=== PATIENT | male | born 1975 | race Caucasian/White ===

== ENCOUNTER → 2016-09-19 | Outpatient (CLI) | payer MEDICARE, MEDICAID ==
[~2016-09-19] MED LIST: BACTRIM 400 MG-1 TAB PO; BUMEX1 MG PO; CELLCEPT500 MG PO; CLONIDINE0.1 MG PO; CLONIDINE0.2 MG PO; COREG25 MG PO; HYDROCODONE BIT1 T11 PO; HYDRODIURIL25 MG PO; INSULIN-HUMA100 U/ML; LIPITOR20 MG PO; LISINOPRIL20 MG PO; NORVASC5 MG PO; PANTOPRAZOLE40 MG PO; PRILOSEC20 MG PO; PROGRAF1 MG PO; SIMVASTATIN20 MG PO; VICODIN 500 MG-1 TAB PO; VITAMIN C1000 M2 PO; VITAMIN D400 I1 PO
[2016-09-19 09:37] LABS: BASO % 0.8 % (0.0-1.0); EOS # 0.1 10*3/uL (0.0-0.4); HEMATOCRIT 43.6 % (42.0-52.0); HEMOGLOBIN 14.9 g/dl (14.0-18.0); LYMPH # 0.8 10*3/uL (1.3-4.4); MEAN CELL VOLUME 88.8 fl (80.0-94.0); MEAN CORPUSCULAR HGB 30.3 pg (27.0-31.0); MEAN CORPUSCULAR HGB CONC 34.2 g/dl (33.0-37.0); MEAN PLATELET VOLUME 10.4 fl (9.6-12.3); MONO # 0.3 10*3/uL (0.1-1.0); MONO % 9.2 % (3.0-9.0); NEUT # 2.4 10*3/uL (2.3-7.9); NEUT % 66.7 % (47.0-73.0); PLATELET COUNT AUTOMATED 230 10*3/uL (130-400); RED BLOOD COUNT 4.91 10*6/uL (4.50-5.90); RED CELL DISTRI WIDTH 12.7 % (0-14.5); WHITE BLOOD COUNT 3.6 10*3/uL (4.8-10.8)
[2016-09-19 10:05] LABS: BUN 19 mg/dl (7-24); CARBON DIOXIDE 26 mmol/L (21-32); CHLORIDE 104 mmol/L (98-107); EST GLOM FILT AFRICAN AMERICAN > 60 ml/min; GLUCOSE 302 mg/dL (65-99); MAGNESIUM 1.9 mg/dL (1.5-2.1); PHOSPHOROUS 2.5 mg/dL (2.5-4.9); POTASSIUM 5.1 mmol/L (3.5-5.1); SODIUM 139 mmol/L (136-145); URIC ACID 4.7 mg/dL (3.5-7.2)
== END | disposition home or self-care (01) ==
LOC: LAB 09:24
PROVIDERS: Internal Medicine Nephrology
DX: Z94.0 Kidney transplant status (principal)

== ENCOUNTER → 2016-10-10 | Outpatient (CLI) | payer MEDICARE, MEDICAID ==
[2016-10-10 10:07] LABS: ALBUMIN 3.8 gm/dl (3.1-4.5); ALKALINE PHOSPHATASE 88 U/L (45-117); BILIRUBIN, TOTAL 0.5 mg/dl (0.2-1.0); BUN 17 mg/dl (7-24); CARBON DIOXIDE 28 mmol/L (21-32); CHLORIDE 105 mmol/L (98-107); CHOLESTEROL 203 mg/dL (<200); EST GLOM FILT AFRICAN AMERICAN > 60 ml/min; GLUCOSE 208 mg/dL (65-99); HDL CHOLESTEROL 56 mg/dl (40-60); LDL CHOLESTEROL 121 mg/dL (9-159); POTASSIUM 4.3 mmol/L (3.5-5.1); SGOT/AST 12 IU/L (3-35); SGPT/ALT 23 U/L (12-78); SODIUM 140 mmol/L (136-145); TRIGLYCERIDES 128 mg/dl (<150); VLDL CHOLESTEROL 26 mg/dL (6-40)
[2016-10-10 10:46] LABS: HEMOGLOBIN A1c 8.2 % (4.8-5.6)
== END | disposition home or self-care (01) ==
LOC: LAB 09:11
PROVIDERS: Physician Assistant Medical
DX: E10.65 Type 1 diabetes mellitus with hyperglycemia (principal); E78.2 Mixed hyperlipidemia; E03.9 Hypothyroidism, unspecified

== ENCOUNTER → 2017-01-31 | Outpatient (CLI) | payer MEDICARE, MEDICAID ==
[2017-01-31 11:18] LABS: ALBUMIN 3.7 gm/dl (3.1-4.5); ALKALINE PHOSPHATASE 83 U/L (45-117); BILIRUBIN, TOTAL 0.9 mg/dl (0.2-1.0); BUN 19 mg/dl (7-24); CARBON DIOXIDE 25 mmol/L (21-32); CHLORIDE 106 mmol/L (98-107); CHOLESTEROL 190 mg/dL (<200); EST GLOM FILT AFRICAN AMERICAN > 60 ml/min; GLUCOSE 117 mg/dL (65-99); HDL CHOLESTEROL 66 mg/dl (40-60); LDL CHOLESTEROL 104 mg/dL (9-159); POTASSIUM 4.1 mmol/L (3.5-5.1); SGOT/AST 13 IU/L (3-35); SGPT/ALT 21 U/L (12-78); SODIUM 136 mmol/L (136-145); TOTAL PROTEIN 7.1 gm/dL (6.4-8.2); TRIGLYCERIDES 102 mg/dl (<150); VLDL CHOLESTEROL 20 mg/dL (6-40)
[2017-01-31 11:24] LABS: HEMOGLOBIN A1c 7.7 % (4.8-5.6)
== END | disposition home or self-care (01) ==
LOC: LAB 10:17
PROVIDERS: Physician Assistant Medical
DX: E10.65 Type 1 diabetes mellitus with hyperglycemia (principal); E03.9 Hypothyroidism, unspecified; E78.2 Mixed hyperlipidemia

== ENCOUNTER → 2017-06-15 | Outpatient (CLI) | payer MEDICARE, MEDICAID ==
[2017-06-15 10:26] LABS: BASO % 0.4 % (0.0-1.0); EOS # 0.1 10*3/uL (0.0-0.4); EOS % 2.6 % (1.0-4.0); HEMATOCRIT 46.7 % (42.0-52.0); HEMOGLOBIN 15.9 g/dl (14.0-18.0); LYMPH # 0.8 10*3/uL (1.3-4.4); LYMPH % 17.1 % (27.0-41.0); MEAN CELL VOLUME 87.8 fl (80.0-94.0); MEAN CORPUSCULAR HGB 29.9 pg (27.0-31.0); MEAN PLATELET VOLUME 10.5 fl (9.6-12.3); MONO # 0.4 10*3/uL (0.1-1.0); MONO % 8.3 % (3.0-9.0); NEUT # 3.3 10*3/uL (2.3-7.9); NEUT % 71.4 % (47.0-73.0); PLATELET COUNT AUTOMATED 196 10*3/uL (130-400); RED BLOOD COUNT 5.32 10*6/uL (4.50-5.90); RED CELL DISTRI WIDTH 12.6 % (0-14.5); WHITE BLOOD COUNT 4.6 10*3/uL (4.8-10.8)
[2017-06-15 10:55] LABS: PHOSPHOROUS 2.8 mg/dL (2.5-4.9); URIC ACID 4.7 mg/dL (3.5-7.2)
[2017-06-15 10:58] LABS: ALBUMIN 3.7 gm/dl (3.1-4.5); ALKALINE PHOSPHATASE 97 U/L (45-117); BUN 18 mg/dl (7-24); CHLORIDE 105 mmol/L (98-107); CHOLESTEROL 191 mg/dL (<200); CREATININE 1.34 mg/dL (0.70-1.30); HDL CHOLESTEROL 52 mg/dl (40-60); LDL CHOLESTEROL 114 mg/dL (9-159); POTASSIUM 4.5 mmol/L (3.5-5.1); SGOT/AST 11 IU/L (3-35); SGPT/ALT 21 U/L (12-78); SODIUM 139 mmol/L (136-145); TOTAL PROTEIN 7.4 gm/dL (6.4-8.2); TRIGLYCERIDES 127 mg/dl (<150); VLDL CHOLESTEROL 25 mg/dL (6-40)
== END | disposition home or self-care (01) ==
LOC: LAB 09:50
PROVIDERS: Internal Medicine Nephrology; Physician Assistant Medical
DX: E10.65 Type 1 diabetes mellitus with hyperglycemia (principal); E78.00 Pure hypercholesterolemia, unspecified; I10 Essential (primary) hypertension; Z94.0 Kidney transplant status

== ENCOUNTER 2017-07-11 20:05 | Emergency (ER) | payer MEDICARE, MEDICAID ==
[~2017-07-11] VITALS: Ht 185.4 cm; Wt 108.9 kg
--- NOTE | ~2017-07-11 | EKG ---
[place], [place] ELECTROCARDIOGRAM REPORT NAME: JOSE DAVID ALMONTE UNIT #: [id number] ROOM: DOCTOR: MYKEL SOLO MD BIRTHDATE: [birth year] DOS: 07/11/2017 Time: 2102 hours. Normal sinus rhythm at 92 beats per minute. The tracing is normal. No previous tracing is available for comparison. MYKEL SOLO MD CM:EKGRPT:ELECTROCARDIOGRAM REPORT [id number] MYKEL SOLO MD
[2017-07-11 21:05] LABS: BASO % 0.7 % (0.0-1.0); EOS # 0.1 10*3/uL (0.0-0.4); EOS % 2.2 % (1.0-4.0); HEMATOCRIT 47.3 % (42.0-52.0); HEMOGLOBIN 16.2 g/dl (14.0-18.0); LYMPH # 1.3 10*3/uL (1.3-4.4); LYMPH % 23.2 % (27.0-41.0); MEAN CELL VOLUME 87.4 fl (80.0-94.0); MEAN CORPUSCULAR HGB 29.9 pg (27.0-31.0); MEAN CORPUSCULAR HGB CONC 34.2 g/dl (33.0-37.0); MEAN PLATELET VOLUME 10.2 fl (9.6-12.3); MONO # 0.4 10*3/uL (0.1-1.0); MONO % 7.1 % (3.0-9.0); NEUT # 3.9 10*3/uL (2.3-7.9); NEUT % 66.6 % (47.0-73.0); PLATELET COUNT AUTOMATED 210 10*3/uL (130-400); RED BLOOD COUNT 5.41 10*6/uL (4.50-5.90); WHITE BLOOD COUNT 5.8 10*3/uL (4.8-10.8)
[2017-07-11 21:21] LABS: CREATININE 1.61 mg/dL (0.70-1.30); POTASSIUM 4.6 mmol/L (3.5-5.1); TOTAL PROTEIN 7.4 gm/dL (6.4-8.2)
== END 2017-07-11 22:42 | disposition home or self-care (01) ==
LOC: ED 20:05
PROVIDERS: Physician Assistant
DX: R55 Syncope and collapse (principal); R42 Dizziness and giddiness; I12.9 Hypertensive chronic kidney disease with stage 1 through stage 4 chronic kidney disease, or unspecified chronic kidney disease; E10.22 Type 1 diabetes mellitus with diabetic chronic kidney disease; E10.319 Type 1 diabetes mellitus with unspecified diabetic retinopathy without macular edema; N18.9 Chronic kidney disease, unspecified; E78.00 Pure hypercholesterolemia, unspecified; Z94.0 Kidney transplant status

== ENCOUNTER → 2017-09-18 | Outpatient (CLI) | payer MEDICARE, MEDICAID ==
[2017-09-18 10:45] LABS: BASO % 0.5 % (0.0-1.0); EOS # 0.2 10*3/uL (0.0-0.4); EOS % 5.1 % (1.0-4.0); HEMOGLOBIN 15.9 g/dl (14.0-18.0); LYMPH # 0.8 10*3/uL (1.3-4.4); LYMPH % 18.8 % (27.0-41.0); MEAN CORPUSCULAR HGB 30.1 pg (27.0-31.0); MEAN CORPUSCULAR HGB CONC 34.6 g/dl (33.0-37.0); MEAN PLATELET VOLUME 10.3 fl (9.6-12.3); MONO # 0.3 10*3/uL (0.1-1.0); MONO % 7.7 % (3.0-9.0); NEUT # 2.9 10*3/uL (2.3-7.9); NEUT % 67.7 % (47.0-73.0); PLATELET COUNT AUTOMATED 186 10*3/uL (130-400); RED BLOOD COUNT 5.29 10*6/uL (4.50-5.90); RED CELL DISTRI WIDTH 12.8 % (0-14.5); WHITE BLOOD COUNT 4.3 10*3/uL (4.8-10.8)
[2017-09-18 10:59] LABS: PHOSPHOROUS 2.6 mg/dL (2.5-4.9); URIC ACID 4.9 mg/dL (3.5-7.2)
[2017-09-18 11:02] LABS: ALBUMIN 3.9 gm/dl (3.1-4.5); BUN 22 mg/dl (7-24); CHLORIDE 104 mmol/L (98-107); CHOLESTEROL 198 mg/dL (<200); CREATININE 1.35 mg/dL (0.70-1.30); HDL CHOLESTEROL 52 mg/dl (40-60); LDL CHOLESTEROL 125 mg/dL (9-159); SGOT/AST 17 IU/L (3-35); SGPT/ALT 25 U/L (12-78); SODIUM 138 mmol/L (136-145); TOTAL PROTEIN 7.4 gm/dL (6.4-8.2); TRIGLYCERIDES 104 mg/dl (<150); VLDL CHOLESTEROL 21 mg/dL (6-40)
[2017-09-18 11:03] LABS: ALKALINE PHOSPHATASE 95 U/L (45-117)
== END | disposition home or self-care (01) ==
LOC: LAB 10:25
PROVIDERS: Internal Medicine Nephrology; Physician Assistant Medical
DX: E10.65 Type 1 diabetes mellitus with hyperglycemia (principal); E78.00 Pure hypercholesterolemia, unspecified; I10 Essential (primary) hypertension; Z94.0 Kidney transplant status

== ENCOUNTER → 2018-01-02 | Outpatient (CLI) | payer MEDICARE, MEDICAID ==
[2018-01-02 10:11] LABS: BASO % 0.6 % (0.0-1.0); EOS # 0.2 10*3/uL (0.0-0.4); EOS % 4.4 % (1.0-4.0); HEMATOCRIT 45.2 % (42.0-52.0); HEMOGLOBIN 15.5 g/dl (14.0-18.0); LYMPH # 0.9 10*3/uL (1.3-4.4); LYMPH % 24.9 % (27.0-41.0); MEAN CELL VOLUME 88.6 fl (80.0-94.0); MEAN CORPUSCULAR HGB 30.4 pg (27.0-31.0); MEAN CORPUSCULAR HGB CONC 34.3 g/dl (33.0-37.0); MEAN PLATELET VOLUME 10.3 fl (9.6-12.3); MONO # 0.3 10*3/uL (0.1-1.0); MONO % 9.4 % (3.0-9.0); NEUT # 2.1 10*3/uL (2.3-7.9); NEUT % 60.4 % (47.0-73.0); PLATELET COUNT AUTOMATED 187 10*3/uL (130-400); RED CELL DISTRI WIDTH 12.6 % (0-14.5); WHITE BLOOD COUNT 3.4 10*3/uL (4.8-10.8)
[2018-01-02 10:32] LABS: PHOSPHOROUS 2.6 mg/dL (2.5-4.9)
[2018-01-02 10:35] LABS: ALBUMIN 3.7 gm/dl (3.1-4.5); ALKALINE PHOSPHATASE 81 U/L (45-117); BUN 18 mg/dl (7-24); CHLORIDE 107 mmol/L (98-107); CHOLESTEROL 167 mg/dL (<200); CREATININE 1.42 mg/dL (0.70-1.30); HDL CHOLESTEROL 50 mg/dl (40-60); LDL CHOLESTEROL 96 mg/dL (9-159); POTASSIUM 4.8 mmol/L (3.5-5.1); SGOT/AST 10 IU/L (3-35); SGPT/ALT 21 U/L (12-78); SODIUM 139 mmol/L (136-145); TOTAL PROTEIN 7.1 gm/dL (6.4-8.2); TRIGLYCERIDES 104 mg/dl (<150); VLDL CHOLESTEROL 21 mg/dL (6-40)
== END | disposition home or self-care (01) ==
LOC: LAB 09:44
PROVIDERS: Internal Medicine Nephrology; Physician Assistant Medical
DX: E78.00 Pure hypercholesterolemia, unspecified (principal); E03.9 Hypothyroidism, unspecified; I10 Essential (primary) hypertension; E10.9 Type 1 diabetes mellitus without complications; Z94.0 Kidney transplant status

== ENCOUNTER 2018-02-18 10:33 | Emergency (ER) | payer MEDICARE, MEDICAID ==
[~2018-02-18] VITALS: Ht 185.4 cm; Wt 108.9 kg
[2018-02-18] MEDS ORDERED: AMOXICILLIN500 M2 PO (11:21)
== END 2018-02-18 11:48 | disposition home or self-care (01) ==
LOC: ED 10:33
DX: H65.01 Acute serous otitis media, right ear (principal); Z79.899 Other long term (current) drug therapy

== ENCOUNTER → 2018-05-07 | Outpatient (CLI) | payer MEDICARE, MEDICAID ==
[~2018-05-07] MED LIST changes: +AMOXICILLIN500 M2 PO
[2018-05-07 10:33] LABS: URIC ACID 5.7 mg/dL (3.5-7.2)
[2018-05-07 10:35] LABS: ALBUMIN 3.8 gm/dl (3.1-4.5); BUN 21 mg/dl (7-24); CHLORIDE 106 mmol/L (98-107); CHOLESTEROL 148 mg/dL (<200); CREATININE 1.21 mg/dL (0.70-1.30); POTASSIUM 4.1 mmol/L (3.5-5.1); SGOT/AST 18 IU/L (3-35); SGPT/ALT 33 U/L (12-78); SODIUM 140 mmol/L (136-145)
[2018-05-07 10:38] LABS: ALKALINE PHOSPHATASE 90 U/L (45-117); HDL CHOLESTEROL 53 mg/dl (40-60); LDL CHOLESTEROL 77 mg/dL (9-159); TOTAL PROTEIN 7.2 gm/dL (6.4-8.2); TRIGLYCERIDES 92 mg/dl (<150); VLDL CHOLESTEROL 18 mg/dL (6-40)
[2018-05-07 10:44] LABS: BASO % 0.6 % (0.0-1.0); EOS # 0.1 10*3/uL (0.0-0.4); HEMATOCRIT 45.1 % (42.0-52.0); HEMOGLOBIN 15.3 g/dl (14.0-18.0); LYMPH # 1.2 10*3/uL (1.3-4.4); LYMPH % 34.1 % (27.0-41.0); MEAN CELL VOLUME 89.5 fl (80.0-94.0); MEAN CORPUSCULAR HGB 30.4 pg (27.0-31.0); MEAN CORPUSCULAR HGB CONC 33.9 g/dl (33.0-37.0); MEAN PLATELET VOLUME 10.4 fl (9.6-12.3); MONO # 0.4 10*3/uL (0.1-1.0); MONO % 12.3 % (3.0-9.0); NEUT # 1.7 10*3/uL (2.3-7.9); NEUT % 48.7 % (47.0-73.0); PLATELET COUNT AUTOMATED 188 10*3/uL (130-400); RED BLOOD COUNT 5.04 10*6/uL (4.50-5.90); RED CELL DISTRI WIDTH 13.1 % (0-14.5); WHITE BLOOD COUNT 3.5 10*3/uL (4.8-10.8)
== END | disposition home or self-care (01) ==
LOC: LAB 09:33
PROVIDERS: Nurse Practitioner; Physician Assistant Medical
DX: D89.9 Disorder involving the immune mechanism, unspecified (principal); E10.65 Type 1 diabetes mellitus with hyperglycemia; E83.40 Disorders of magnesium metabolism, unspecified; Z79.899 Other long term (current) drug therapy; Z94.0 Kidney transplant status

== ENCOUNTER 2018-08-01 10:13 | Emergency (ER) | payer MEDICARE, MEDICAID ==
[~2018-08-01] VITALS: Ht 182.8 cm; Wt 104.3 kg
[2018-08-01] MEDS ORDERED: TESSALON PERLE100 M1 PO (11:17)
[2018-08-01] MEDS ORDERED: SEPTDS PO (11:17)
[2018-08-01] MEDS ORDERED: PREDNISONE20 M1 PO (11:17)
== END 2018-08-01 11:35 | disposition home or self-care (01) ==
LOC: ED 10:13
DX: J32.9 Chronic sinusitis, unspecified (principal); Z79.899 Other long term (current) drug therapy

== ENCOUNTER → 2018-08-09 | Outpatient (CLI) | payer MEDICARE, MEDICAID ==
[~2018-08-09] MED LIST changes: +PREDNISONE20 M1 PO; +SEPTDS PO; +TESSALON PERLE100 M1 PO
[2018-08-09 10:08] LABS: BASO % 0.5 % (0.0-1.0); BUN 20 mg/dl (7-24); CHLORIDE 107 mmol/L (98-107); CREATININE 1.38 mg/dL (0.70-1.30); EOS # 0.1 10*3/uL (0.0-0.4); EOS % 3.1 % (1.0-4.0); HEMOGLOBIN 15.6 g/dl (14.0-18.0); LYMPH # 0.9 10*3/uL (1.3-4.4); LYMPH % 22.5 % (27.0-41.0); MEAN CORPUSCULAR HGB 30.2 pg (27.0-31.0); MEAN CORPUSCULAR HGB CONC 33.9 g/dl (33.0-37.0); MEAN PLATELET VOLUME 10.6 fl (9.6-12.3); MONO # 0.3 10*3/uL (0.1-1.0); MONO % 6.5 % (3.0-9.0); NEUT # 2.8 10*3/uL (2.3-7.9); NEUT % 66.9 % (47.0-73.0); PHOSPHOROUS 3.1 mg/dL (2.5-4.9); PLATELET COUNT AUTOMATED 226 10*3/uL (130-400); POTASSIUM 4.7 mmol/L (3.5-5.1); RED BLOOD COUNT 5.17 10*6/uL (4.50-5.90); RED CELL DISTRI WIDTH 12.9 % (0-14.5); SODIUM 139 mmol/L (136-145); WHITE BLOOD COUNT 4.1 10*3/uL (4.8-10.8)
[2018-08-09 10:09] LABS: URIC ACID 4.4 mg/dL (3.5-7.2)
== END | disposition home or self-care (01) ==
LOC: LAB 08:42
PROVIDERS: Internal Medicine Nephrology
DX: E55.9 Vitamin D deficiency, unspecified (principal); Z94.0 Kidney transplant status; Z79.899 Other long term (current) drug therapy

== ENCOUNTER → 2018-10-16 | Outpatient (CLI) | payer MEDICARE ==
[2018-10-16 09:16] LABS: BASO % 0.6 % (0.0-1.0); EOS # 0.1 10*3/uL (0.0-0.4); EOS % 3.3 % (1.0-4.0); HEMATOCRIT 45.8 % (42.0-52.0); HEMOGLOBIN 15.8 g/dl (14.0-18.0); LYMPH # 1.1 10*3/uL (1.3-4.4); LYMPH % 30.1 % (27.0-41.0); MEAN CELL VOLUME 89.6 fl (80.0-94.0); MEAN CORPUSCULAR HGB 30.9 pg (27.0-31.0); MEAN CORPUSCULAR HGB CONC 34.5 g/dl (33.0-37.0); MONO # 0.4 10*3/uL (0.1-1.0); MONO % 10.6 % (3.0-9.0); NEUT % 55.1 % (47.0-73.0); PLATELET COUNT AUTOMATED 196 10*3/uL (130-400); RED BLOOD COUNT 5.11 10*6/uL (4.50-5.90); WHITE BLOOD COUNT 3.6 10*3/uL (4.8-10.8)
[2018-10-16 09:39] LABS: BUN 22 mg/dl (7-24); CHLORIDE 110 mmol/L (98-107); CREATININE 1.24 mg/dL (0.70-1.30); PHOSPHOROUS 2.4 mg/dL (2.5-4.9); POTASSIUM 4.5 mmol/L (3.5-5.1); SODIUM 139 mmol/L (136-145); URIC ACID 5.7 mg/dL (3.5-7.2)
[2018-10-16 10:53] LABS: PTH INTACT 102.4 pg/mL (18.5-88.0); VITAMIN D, 25-HYDROXY 28.5 ng/mL (30-100)
== END | disposition home or self-care (01) ==
LOC: LAB 08:34
PROVIDERS: Internal Medicine Nephrology
DX: N25.81 Secondary hyperparathyroidism of renal origin (principal); I12.9 Hypertensive chronic kidney disease with stage 1 through stage 4 chronic kidney disease, or unspecified chronic kidney disease; E10.22 Type 1 diabetes mellitus with diabetic chronic kidney disease; N18.9 Chronic kidney disease, unspecified; E55.9 Vitamin D deficiency, unspecified; Z94.0 Kidney transplant status; Z79.899 Other long term (current) drug therapy

== ENCOUNTER → 2019-04-11 | Outpatient (CLI) | payer MEDICARE ==
[~2019-04-11] MED LIST changes: +OMEPRAZOLE40 MG PO; +PROGRAF0.5 MG PO; -PROGRAF1 MG PO; +TRULICITY0.75 MG/0. SC
[2019-04-11 09:11] LABS: BASO % 0.6 % (0.0-1.0); EOS # 0.2 10*3/uL (0.0-0.4); EOS % 3.6 % (1.0-4.0); HEMATOCRIT 44.5 % (42.0-52.0); HEMOGLOBIN 15.2 g/dl (14.0-18.0); LYMPH % 19.8 % (27.0-41.0); MEAN CELL VOLUME 89.7 fl (80.0-94.0); MEAN CORPUSCULAR HGB 30.6 pg (27.0-31.0); MEAN CORPUSCULAR HGB CONC 34.2 g/dl (33.0-37.0); MEAN PLATELET VOLUME 10.5 fl (9.6-12.3); MONO # 0.4 10*3/uL (0.1-1.0); MONO % 8.4 % (3.0-9.0); NEUT # 3.4 10*3/uL (2.3-7.9); NEUT % 67.4 % (47.0-73.0); PLATELET COUNT AUTOMATED 185 10*3/uL (130-400); RED BLOOD COUNT 4.96 10*6/uL (4.50-5.90); RED CELL DISTRI WIDTH 12.6 % (0-14.5)
[2019-04-11 09:28] LABS: PHOSPHOROUS 3.5 mg/dL (2.5-4.9)
[2019-04-11 09:31] LABS: ALBUMIN 3.6 gm/dl (3.1-4.5); ALKALINE PHOSPHATASE 87 U/L (45-117); BUN 28 mg/dl (7-24); CHLORIDE 106 mmol/L (98-107); CHOLESTEROL 158 mg/dL (<200); CREATININE 1.32 mg/dL (0.70-1.30); SGOT/AST 15 IU/L (3-35); SGPT/ALT 26 U/L (12-78); SODIUM 136 mmol/L (136-145); TOTAL PROTEIN 7.2 gm/dL (6.4-8.2); TRIGLYCERIDES 134 mg/dl (<150); VLDL CHOLESTEROL 27 mg/dL (6-40)
[2019-04-11 09:32] LABS: HDL CHOLESTEROL 43 mg/dl (40-60); LDL CHOLESTEROL 88 mg/dL (9-159)
[2019-04-12 09:08] LABS: CREATININE,URINE 59.3 mg/dL (Not Estab.); MICRO ALBUMIN/CRE RATIO <5.1 (0.0-30.0)
== END | disposition home or self-care (01) ==
LOC: LAB 08:37
PROVIDERS: Internal Medicine Endocrinology, Diabetes & Metabolism; Internal Medicine Nephrology
DX: E10.29 Type 1 diabetes mellitus with other diabetic kidney complication (principal); E55.9 Vitamin D deficiency, unspecified; Z94.0 Kidney transplant status

== ENCOUNTER 2019-05-07 20:56 | Inpatient (IN) | payer MEDICARE ==
[~2019-05-07] VITALS: Ht 185.4 cm; Wt 119.9 kg
[~2019-05-07 20:56] MED LIST changes: -OMEPRAZOLE40 MG PO; -TRULICITY0.75 MG/0. SC
[2019-05-07 20:59] VITALS: BP 119/74
[2019-05-07 21:52] LABS: BASO % 0.3 % (0.0-1.0); EOS # 0.1 10*3/uL (0.0-0.4); HEMATOCRIT 43.2 % (42.0-52.0); LYMPH # 0.4 10*3/uL (1.3-4.4); LYMPH % 10.8 % (27.0-41.0); MEAN CELL VOLUME 88.7 fl (80.0-94.0); MEAN CORPUSCULAR HGB 30.8 pg (27.0-31.0); MEAN CORPUSCULAR HGB CONC 34.7 g/dl (33.0-37.0); MEAN PLATELET VOLUME 10.4 fl (9.6-12.3); MONO # 0.5 10*3/uL (0.1-1.0); MONO % 11.5 % (3.0-9.0); NEUT % 75.1 % (47.0-73.0); PLATELET COUNT AUTOMATED 169 10*3/uL (130-400); RED BLOOD COUNT 4.87 10*6/uL (4.50-5.90); RED CELL DISTRI WIDTH 12.3 % (0-14.5)
[2019-05-07 21:58] VITALS: BP 112/70
[2019-05-07 22:03] LABS: ACT PARTIAL THROMBO TIME 25.4 SECONDS (20.0-32.1)
[2019-05-07 22:08] LABS: ALBUMIN 3.5 gm/dl (3.1-4.5); ALKALINE PHOSPHATASE 87 U/L (45-117); BUN 17 mg/dl (7-24); CHLORIDE 109 mmol/L (98-107); CREATININE 1.42 mg/dL (0.70-1.30); LIPASE 50 U/L (73-393); POTASSIUM 4.2 mmol/L (3.5-5.1); SGOT/AST 18 IU/L (3-35); SGPT/ALT 22 U/L (12-78); SODIUM 141 mmol/L (136-145); TOTAL PROTEIN 6.8 gm/dL (6.4-8.2)
[2019-05-07 22:12] LABS: TROPONIN I < 0.015 ng/ml (<0.045)
[2019-05-07 22:30] VITALS: BP 102/65
[2019-05-07 23:00] VITALS: BP 99/67
--- NOTE | 2019-05-07 23:19 | NUR ---
[age] PT STATES HE IS PAIN FREE. NOT SURE IF HE WANTS TO STAY THE NIGHT DR HERNANDEZ TO TALK WITH THE PATIENT. ANDREI MATTHEW RN
[2019-05-08] VITALS: BP 111/73
[2019-05-08] MEDS ORDERED: OMEPRAZOLE40 MG PO (00:07)
[2019-05-08] MEDS ORDERED: TRULICITY0.75 MG/0. SC (00:09)
--- NOTE | 2019-05-08 02:26 | NUR ---
A 43, admitted to 4E, under the services of BECKY Garrison DO with a diagnosis of CHEST PAIN. Chief complaint is SHARP PAIN TO RUQ/CHEST PAIN. Patient arrived via stretcher from ER. Monitor applied. Initial assessment completed. Vital signs taken and recorded. BECKY GARRISON DO notified of admission to the unit. Orders received. See assessment for past medical history, medications and allergies. Patient and/or family oriented to unit. Clothing/patient valuable form completed. SHAYAN SUTHERLAND
[2019-05-08 03:48] LABS: BASO % 0.3 % (0.0-1.0); EOS # 0.1 10*3/uL (0.0-0.4); EOS % 3.5 % (1.0-4.0); HEMATOCRIT 41.7 % (42.0-52.0); HEMOGLOBIN 14.4 g/dl (14.0-18.0); LYMPH # 0.5 10*3/uL (1.3-4.4); LYMPH % 15.4 % (27.0-41.0); MEAN CELL VOLUME 89.3 fl (80.0-94.0); MEAN CORPUSCULAR HGB 30.8 pg (27.0-31.0); MEAN CORPUSCULAR HGB CONC 34.5 g/dl (33.0-37.0); MEAN PLATELET VOLUME 10.1 fl (9.6-12.3); MONO # 0.4 10*3/uL (0.1-1.0); MONO % 13.2 % (3.0-9.0); NEUT # 2.1 10*3/uL (2.3-7.9); NEUT % 67.6 % (47.0-73.0); PLATELET COUNT AUTOMATED 144 10*3/uL (130-400); RED BLOOD COUNT 4.67 10*6/uL (4.50-5.90); RED CELL DISTRI WIDTH 12.5 % (0-14.5); WHITE BLOOD COUNT 3.1 10*3/uL (4.8-10.8)
[2019-05-08 04:04] LABS: ALBUMIN 3.3 gm/dl (3.1-4.5); ALKALINE PHOSPHATASE 83 U/L (45-117); BUN 18 mg/dl (7-24); CHLORIDE 108 mmol/L (98-107); CREATININE 1.41 mg/dL (0.70-1.30); PHOSPHOROUS 3.2 mg/dL (2.5-4.9); POTASSIUM 4.5 mmol/L (3.5-5.1); SGOT/AST 12 IU/L (3-35); SGPT/ALT 20 U/L (12-78); SODIUM 140 mmol/L (136-145); TOTAL PROTEIN 6.4 gm/dL (6.4-8.2)
--- NOTE | 2019-05-08 04:11 | NUR ---
ANSWERING SERVICE NOTIFIED OF CONSULT
[2019-05-08 08:00] VITALS: BP 112/86; BP 124/76
--- NOTE | 2019-05-08 08:30 | NUR ---
PT ADVISED OF NPO STATUS FOR STRESS TEST THIS AM.
[2019-05-08 08:39] LABS: VITAMIN D, 25-HYDROXY 37.2 ng/mL (30-100)
--- NOTE | 2019-05-08 08:59 | NUR ---
SPOKE W/DR. SCHERER RE CXR RESULTS AND DR. NICHOLSON STATES PT CAN BE D/C TO HOME TODAY AND PT REQUESTING SCRIPT FOR [facility] ON D/C.
--- NOTE | 2019-05-08 09:00 | NUR ---
Rivet Machine Operator in to talk to patient. Patient states lives at home with family. There are few steps in the home. Physician: no pcp [facility]acy: [facility] Home health services: none Patient's level of ADLs: INDEPENDENT Patient has working utilities: all working DME: none Follow-up physician's appointment after d/c: will be made by hospitalist nurse director upon discharge Does patient want to access PORTAL?: no Discharge plan discussed with patient, he lives at home, is independent in adls and ambulation, states he will return home when medically stable and denies any home needs. DON LAM
--- NOTE | 2019-05-08 09:00 | NUR ---
PT GOING TO CARDIO FOR EXERCISE STRESS TEST.
--- NOTE | 2019-05-08 09:10 | NUR ---
INFORMED CONSENT OBTAINED FOR A STANDARD STRESS TEST WITH DR. YUN. RESTING EKG NSR WITH A HT RT OF 80 AND BP OF 118/78 IN A SUPINE POSITION, HT RT OF 106, AND BP OF 112/84 IN A STANDING POSITION. PT COMPLETED 7:15 OF A ELIEZER PROTOCOL WITH COMPLETION OF 1:15 INTO STAGE III AT 3.4 MPH AND 14% GRADE. REACHED A PEAK HT RT OF 150 WHICH IS 85% OF PREDICTED MAX WITH A PEAK BP OF 166/60. TEST TERMINATED DUE TO FATIGUE. HAD NO CHEST PAIN DURING EXERCISE. EKG NONDIAGNOSTIC. HAS AN AVERAGE EXERCISE TOLERANCE. LAST RECOVERY HT RT OF 118, WITH A BP OF 112/72. PT TAKEN BACK TO HIS ROOM IN STABLE CONDITION VIA WHEELCHAIR. REPORT GIVEN TO ANGELICA.
--- NOTE | 2019-05-08 09:42 | NUR ---
PT RETURNED TO FLOOR FROM STRESS TEST.
[2019-05-08 12:00] VITALS: BP 146/92
[2019-05-08 16:00] VITALS: BP 140/95
--- NOTE | 2019-05-08 16:21 | NUR ---
DR. CANTU NOTIFIED OF PT'S WISHES TO BE D/C TODAY. TO PASS ALONG TO APPROPRIATE TEAM MEMBERS.
--- NOTE | 2019-05-08 17:39 | NUR ---
Discharge instructions reviewed with patient/family. Patient receptive and verbalizes understanding. Follow-up care arranged. Written instructions given to patient/family. GONZALES TODD
== END 2019-05-08 19:12 | disposition home or self-care (01) | DRG 640 ==
LOC: ED 20:56 → 4E 23:06 → EDHOLD 23:06 → 4E 23:29
PROVIDERS: Emergency Medicine; Student in an Organized Health Care Education/Training Program; ADMIT Internal Medicine
PROC: 4A02XM4 Measurement of Cardiac Total Activity, External Approach (ICD-10-PCS; principal; 2019-05-08)
DX: E87.8 Other disorders of electrolyte and fluid balance, not elsewhere classified (principal); N17.0 Acute kidney failure with tubular necrosis; I24.9 Acute ischemic heart disease, unspecified; T86.12 Kidney transplant failure; M94.0 Chondrocostal junction syndrome [Tietze]; K21.9 Gastro-esophageal reflux disease without esophagitis; K29.70 Gastritis, unspecified, without bleeding; R00.0 Tachycardia, unspecified; E66.09 Other obesity due to excess calories; E10.22 Type 1 diabetes mellitus with diabetic chronic kidney disease; N18.3 Chronic kidney disease, stage 3 (moderate); D70.2 Other drug-induced agranulocytosis; E10.65 Type 1 diabetes mellitus with hyperglycemia; I48.0 Paroxysmal atrial fibrillation; Y83.0 Surgical operation with transplant of whole organ as the cause of abnormal reaction of the patient, or of later complication, without mention of misadventure at the time of the procedure; E78.5 Hyperlipidemia, unspecified; T50.995A Adverse effect of other drugs, medicaments and biological substances, initial encounter; Y92.89 Other specified places as the place of occurrence of the external cause; Z87.891 Personal history of nicotine dependence; Z82.49 Family history of ischemic heart disease and other diseases of the circulatory system; Z83.3 Family history of diabetes mellitus; Z79.899 Other long term (current) drug therapy; Z68.34 Body mass index [BMI] 34.0-34.9, adult

== ENCOUNTER → 2019-07-23 | Outpatient (CLI) | payer MEDICARE, OTHER ==
[~2019-07-23] MED LIST changes: +OMEPRAZOLE40 MG PO; +TRULICITY0.75 MG/0. SC
[2019-07-23 09:35] LABS: BASO % 0.2 % (0.0-1.0); EOS # 0.1 10*3/uL (0.0-0.4); HEMATOCRIT 44.4 % (42.0-52.0); HEMOGLOBIN 15.3 g/dl (14.0-18.0); LYMPH % 23.4 % (27.0-41.0); MEAN CELL VOLUME 87.6 fl (80.0-94.0); MEAN CORPUSCULAR HGB 30.2 pg (27.0-31.0); MEAN CORPUSCULAR HGB CONC 34.5 g/dl (33.0-37.0); MEAN PLATELET VOLUME 10.2 fl (9.6-12.3); MONO # 0.4 10*3/uL (0.1-1.0); NEUT # 2.8 10*3/uL (2.3-7.9); NEUT % 64.2 % (47.0-73.0); PLATELET COUNT AUTOMATED 200 10*3/uL (130-400); RED BLOOD COUNT 5.07 10*6/uL (4.50-5.90); RED CELL DISTRI WIDTH 12.9 % (0-14.5); WHITE BLOOD COUNT 4.3 10*3/uL (4.8-10.8)
[2019-07-23 10:09] LABS: PHOSPHOROUS 3.7 mg/dL (2.5-4.9); URIC ACID 4.9 mg/dL (3.5-7.2)
[2019-07-23 10:10] LABS: ALKALINE PHOSPHATASE 89 U/L (45-117); BUN 16 mg/dl (7-24); CHLORIDE 108 mmol/L (98-107); CHOLESTEROL 135 mg/dL (<200); CREATININE 1.28 mg/dL (0.70-1.30); HDL CHOLESTEROL 51 mg/dl (40-60); LDL CHOLESTEROL 64 mg/dL (9-159); POTASSIUM 4.3 mmol/L (3.5-5.1); SGOT/AST 14 IU/L (3-35); SGPT/ALT 30 U/L (12-78); SODIUM 140 mmol/L (136-145); TOTAL PROTEIN 7.3 gm/dL (6.4-8.2); TRIGLYCERIDES 100 mg/dl (<150); VLDL CHOLESTEROL 20 mg/dL (6-40)
[2019-07-24 10:54] LABS: CREATININE,URINE 143.5 mg/dL (Not Estab.)
== END | disposition home or self-care (01) ==
LOC: LAB 09:02
PROVIDERS: Internal Medicine Endocrinology, Diabetes & Metabolism; Internal Medicine Nephrology
DX: E10.29 Type 1 diabetes mellitus with other diabetic kidney complication (principal); E55.9 Vitamin D deficiency, unspecified; Z94.0 Kidney transplant status

== ENCOUNTER → 2020-01-06 | Outpatient (CLI) | payer MEDICARE, OTHER ==
[2020-01-06 09:55] LABS: BASO % 0.5 % (0.0-1.0); EOS # 0.2 10*3/uL (0.0-0.4); EOS % 3.9 % (1.0-4.0); HEMATOCRIT 45.4 % (42.0-52.0); LYMPH # 0.9 10*3/uL (1.3-4.4); MEAN CELL VOLUME 89.7 fl (80.0-94.0); MEAN CORPUSCULAR HGB CONC 33.5 g/dl (33.0-37.0); MEAN PLATELET VOLUME 10.3 fl (9.6-12.3); MONO # 0.4 10*3/uL (0.1-1.0); MONO % 11.2 % (3.0-9.0); NEUT # 2.3 10*3/uL (2.3-7.9); NEUT % 60.9 % (47.0-73.0); PLATELET COUNT AUTOMATED 190 10*3/uL (130-400); RED BLOOD COUNT 5.06 10*6/uL (4.50-5.90); RED CELL DISTRI WIDTH 12.6 % (0-14.5); WHITE BLOOD COUNT 3.8 10*3/uL (4.8-10.8)
[2020-01-06 10:18] LABS: URIC ACID 5.2 mg/dL (3.5-7.2)
[2020-01-06 10:19] LABS: ALBUMIN 3.5 gm/dl (3.1-4.5); BUN 17 mg/dl (7-24); CHLORIDE 106 mmol/L (98-107); CHOLESTEROL 114 mg/dL (<200); CREATININE 1.25 mg/dL (0.70-1.30); POTASSIUM 4.8 mmol/L (3.5-5.1); SGOT/AST 17 IU/L (3-35); SGPT/ALT 28 U/L (12-78); SODIUM 139 mmol/L (136-145); TOTAL PROTEIN 7.4 gm/dL (6.4-8.2); TRIGLYCERIDES 66 mg/dl (<150); VLDL CHOLESTEROL 13 mg/dL (6-40)
[2020-01-06 10:25] LABS: ALKALINE PHOSPHATASE 95 U/L (45-117); FREE T4 1.28 ng/dl (0.76-1.46); HDL CHOLESTEROL 44 mg/dl (40-60); LDL CHOLESTEROL 57 mg/dL (9-159)
[2020-01-07 11:07] LABS: CREATININE,URINE 72.7 mg/dL (Not Estab.); MICRO ALBUMIN/CRE RATIO <4 (0-29)
== END | disposition home or self-care (01) ==
LOC: LAB 09:14
PROVIDERS: Internal Medicine Endocrinology, Diabetes & Metabolism; Internal Medicine Nephrology
DX: E10.29 Type 1 diabetes mellitus with other diabetic kidney complication (principal); I10 Essential (primary) hypertension; E55.9 Vitamin D deficiency, unspecified; E78.2 Mixed hyperlipidemia; Z79.899 Other long term (current) drug therapy; Z96.41 Presence of insulin pump (external) (internal); Z94.0 Kidney transplant status

== ENCOUNTER 2020-03-03 10:09 | Emergency (ER) | payer MEDICARE, OTHER ==
[~2020-03-03] VITALS: Wt 113.4 kg
== END 2020-03-03 12:06 | disposition home or self-care (01) ==
LOC: ED 10:09
DX: S96.911A Strain of unspecified muscle and tendon at ankle and foot level, right foot, initial encounter (principal); E78.5 Hyperlipidemia, unspecified; I48.91 Unspecified atrial fibrillation; K21.9 Gastro-esophageal reflux disease without esophagitis; I10 Essential (primary) hypertension; E11.9 Type 2 diabetes mellitus without complications; Z79.899 Other long term (current) drug therapy; X58.XXXA Exposure to other specified factors, initial encounter; Y93.89 Activity, other specified; Y92.89 Other specified places as the place of occurrence of the external cause; Y99.8 Other external cause status

== ENCOUNTER → 2020-04-21 | Outpatient (CLI) | payer MEDICARE, OTHER ==
[2020-04-21 09:48] LABS: ALBUMIN 3.8 gm/dl (3.1-4.5); ALKALINE PHOSPHATASE 99 U/L (45-117); BUN 19 mg/dl (7-24); CHLORIDE 107 mmol/L (98-107); CHOLESTEROL 109 mg/dL (<200); HDL CHOLESTEROL 49 mg/dl (40-60); LDL CHOLESTEROL 47 mg/dL (9-159); POTASSIUM 4.8 mmol/L (3.5-5.1); SGOT/AST 18 IU/L (3-35); SGPT/ALT 33 U/L (12-78); SODIUM 137 mmol/L (136-145); TOTAL PROTEIN 7.1 gm/dL (6.4-8.2); TRIGLYCERIDES 63 mg/dl (<150); VLDL CHOLESTEROL 13 mg/dL (6-40)
[2020-04-22 10:07] LABS: CREATININE,URINE 91.8 mg/dL (Not Estab.); MICRO ALBUMIN/CRE RATIO <3 (0-29)
== END | disposition home or self-care (01) ==
LOC: LAB 08:51
PROVIDERS: ATTEND Internal Medicine Endocrinology, Diabetes & Metabolism
DX: E10.29 Type 1 diabetes mellitus with other diabetic kidney complication (principal); E78.2 Mixed hyperlipidemia; I10 Essential (primary) hypertension; E55.9 Vitamin D deficiency, unspecified; Z79.899 Other long term (current) drug therapy

== ENCOUNTER → 2020-11-08 | Outpatient (CLI) | payer BC, MEDICARE ==
[2020-11-08 10:54] LABS: ALBUMIN 3.8 gm/dl (3.1-4.5); BUN 22 mg/dl (7-24); CHLORIDE 107 mmol/L (98-107); CHOLESTEROL 122 mg/dL (<200); CREATININE 1.26 mg/dL (0.70-1.30); LDL CHOLESTEROL 58 mg/dL (9-159); POTASSIUM 4.8 mmol/L (3.5-5.1); SGPT/ALT 34 U/L (12-78); SODIUM 137 mmol/L (136-145); TOTAL PROTEIN 7.1 gm/dL (6.4-8.2); TRIGLYCERIDES 108 mg/dl (<150)
[2020-11-08 11:07] LABS: SGOT/AST 16 IU/L (3-35)
[2020-11-08 11:08] LABS: ALKALINE PHOSPHATASE 8 U/L (45-117)
[2020-11-09 11:07] LABS: CREATININE,URINE 91.5 mg/dL (Not Estab.); MICRO ALBUMIN/CRE RATIO <3 (0-29)
== END | disposition home or self-care (01) ==
LOC: LAB 09:44
PROVIDERS: ATTEND Internal Medicine Endocrinology, Diabetes & Metabolism
DX: E10.29 Type 1 diabetes mellitus with other diabetic kidney complication (principal); E55.9 Vitamin D deficiency, unspecified

== ENCOUNTER → 2021-03-10 | Outpatient (CLI) | payer BC, MEDICARE ==
[2021-03-10 11:46] LABS: PTH INTACT 86.5 pg/mL (18.5-88.0); VITAMIN D, 25-HYDROXY 37.2 ng/mL (30-100)
== END | disposition home or self-care (01) ==
LOC: LAB 10:29
PROVIDERS: ATTEND Internal Medicine Nephrology
DX: N25.81 Secondary hyperparathyroidism of renal origin (principal)

== ENCOUNTER → 2021-09-07 | Outpatient (CLI) | payer BC, MEDICARE ==
[2021-09-07 09:39] LABS: BUN 16 mg/dl (7-24); CHLORIDE 107 mmol/L (98-107); CHOLESTEROL 172 mg/dL (<200); LDL CHOLESTEROL 104 mg/dL (9-159); POTASSIUM 4.4 mmol/L (3.5-5.1); SODIUM 137 mmol/L (136-145); TRIGLYCERIDES 91 mg/dl (<150)
[2021-09-08 10:06] LABS: CREATININE,URINE 72.5 mg/dL (Not Estab.); MICRO ALBUMIN/CRE RATIO <4 (0-29)
== END | disposition home or self-care (01) ==
LOC: LAB 09:03
PROVIDERS: ATTEND Internal Medicine Endocrinology, Diabetes & Metabolism
DX: E10.9 Type 1 diabetes mellitus without complications (principal)

== ENCOUNTER 2021-12-21 09:47 | Emergency (ER) | payer BC, MEDICARE ==
[~2021-12-21] VITALS: Ht 185.4 cm; Wt 110.7 kg
[2021-12-21] MEDS ORDERED: PREDNISONE50 MG PO (11:01)
== END 2021-12-21 11:12 | disposition home or self-care (01) ==
LOC: ED 09:47
DX: L25.9 Unspecified contact dermatitis, unspecified cause (principal); Z87.891 Personal history of nicotine dependence; Z79.899 Other long term (current) drug therapy

== ENCOUNTER → 2023-02-22 | Outpatient (CLI) | payer BC, MEDICARE ==
[~2023-02-22] MED LIST changes: +PREDNISONE50 MG PO
[2023-02-22 11:20] LABS: BASO % 0.5 % (0.0-1.0); EOS # 0.1 10*3/uL (0.0-0.4); EOS % 2.5 % (1.0-4.0); HEMATOCRIT 47.2 % (42.0-52.0); LYMPH # 1.1 10*3/uL (1.3-4.4); LYMPH % 26.4 % (27.0-41.0); MEAN CELL VOLUME 89.6 fl (80.0-94.0); MEAN CORPUSCULAR HGB 30.7 pg (27.0-31.0); MEAN CORPUSCULAR HGB CONC 34.3 g/dl (33.0-37.0); MONO # 0.3 10*3/uL (0.1-1.0); MONO % 8.3 % (3.0-9.0); NEUT # 2.5 10*3/uL (2.3-7.9); PLATELET COUNT AUTOMATED 186 10*3/uL (130-400); RED BLOOD COUNT 5.27 10*6/uL (4.50-5.90); RED CELL DISTRI WIDTH 12.6 % (0-14.5)
[2023-02-22 12:02] LABS: ALKALINE PHOSPHATASE 80 U/L (46-116); BUN 13 mg/dl (9-23); CHLORIDE 108 mmol/L (98-107); POTASSIUM 4.7 mmol/L (3.4-5.1); SGPT/ALT 17 U/L (10-49); TOTAL PROTEIN 7.1 gm/dL (6.0-8.0)
[2023-02-22 12:03] LABS: VITAMIN D, 25-HYDROXY 33.6 ng/mL (30-100)
== END | disposition home or self-care (01) ==
LOC: LAB 10:41
PROVIDERS: ATTEND Internal Medicine Nephrology
DX: Z94.0 Kidney transplant status (principal)

== ENCOUNTER → 2023-08-24 | Outpatient (CLI) | payer BC, MEDICARE ==
[2023-08-24 09:36] LABS: BASO % 0.4 % (0.0-1.0); EOS # 0.2 10*3/uL (0.0-0.4); EOS % 3.1 % (1.0-4.0); HEMATOCRIT 46.1 % (42.0-52.0); LYMPH # 1.1 10*3/uL (1.3-4.4); LYMPH % 23.2 % (27.0-41.0); MEAN CORPUSCULAR HGB 30.2 pg (27.0-31.0); MEAN CORPUSCULAR HGB CONC 34.3 g/dl (33.0-37.0); MEAN PLATELET VOLUME 10.1 fl (9.6-12.3); MONO # 0.4 10*3/uL (0.1-1.0); MONO % 8.1 % (3.0-9.0); NEUT # 3.1 10*3/uL (2.3-7.9); PLATELET COUNT AUTOMATED 177 10*3/uL (130-400); RED BLOOD COUNT 5.24 10*6/uL (4.50-5.90); WHITE BLOOD COUNT 4.8 10*3/uL (4.8-10.8)
[2023-08-24 09:58] LABS: ALKALINE PHOSPHATASE 80 U/L (46-116); BUN 23 mg/dl (9-23); CHLORIDE 106 mmol/L (98-107); CHOLESTEROL 140 mg/dL (<200); LDL CHOLESTEROL 77 mg/dL (9-159); POTASSIUM 4.9 mmol/L (3.4-5.1); SGPT/ALT 22 U/L (5-49); TRIGLYCERIDES 70 mg/dl (<150)
== END | disposition home or self-care (01) ==
LOC: ORTHO 02:07 → LAB 02:07 → ORTHO 13:37
PROVIDERS: Family Medicine; ATTEND Orthopaedic Surgery
DX: M79.641 Pain in right hand (principal); E10.319 Type 1 diabetes mellitus with unspecified diabetic retinopathy without macular edema; E55.9 Vitamin D deficiency, unspecified; E78.5 Hyperlipidemia, unspecified

== ENCOUNTER → 2024-01-24 | Outpatient (CLI) | payer BC, MEDICARE ==
[2024-01-24 08:38] LABS: BILIRUBIN Negative (Negative); BLOOD Negative (Negative); CLARITY Clear (Clear); COLOR Yellow (Yellow); GLUCOSE 3+ (Negative); KETONE Negative (Negative); LEUKO ESTERASE Negative (Negative); NITRITE Negative (Negative); PH 5.5 (4.5-8.0); SPECIFIC GRAVITY 1.025 (1.001-1.030); UROBILINOGEN 0.2 E.U./dl (0.0-1.0)
[2024-01-24 08:40] LABS: BASO % 0.6 % (0.0-1.0); EOS # 0.1 10*3/uL (0.0-0.4); EOS % 2.2 % (1.0-4.0); HEMATOCRIT 45.7 % (42.0-52.0); LYMPH % 20.4 % (27.0-41.0); MEAN CELL VOLUME 86.2 fl (80.0-94.0); MEAN CORPUSCULAR HGB 29.8 pg (27.0-31.0); MEAN CORPUSCULAR HGB CONC 34.6 g/dl (33.0-37.0); MEAN PLATELET VOLUME 10.2 fl (9.6-12.3); MONO # 0.4 10*3/uL (0.1-1.0); MONO % 7.9 % (3.0-9.0); NEUT # 3.4 10*3/uL (2.3-7.9); NEUT % 68.5 % (47.0-73.0); PLATELET COUNT AUTOMATED 184 10*3/uL (130-400); RED CELL DISTRI WIDTH 12.9 % (0-14.5)
[2024-01-24 08:46] LABS: URINE CREATININE RANDOM 44.25 mg/dL
[2024-01-24 09:15] LABS: VITAMIN D, 25-HYDROXY 40.3 ng/mL (30-100)
[2024-01-24 09:16] LABS: ALKALINE PHOSPHATASE 111 U/L (46-116); BUN 14 mg/dl (9-23); CHLORIDE 105 mmol/L (98-107); POTASSIUM 4.7 mmol/L (3.4-5.1); SGPT/ALT 15 U/L (5-49); TOTAL PROTEIN 6.8 gm/dL (6.0-8.0); URIC ACID 5.2 mg/dL (3.7-9.2)
[2024-01-24 09:36] LABS: EPITHELIAL CELLS 0-2; RBC 0-2 rbc/hpf (0-2); WBC 0-2 wbc/hpf (0-5)
== END | disposition home or self-care (01) ==
LOC: LAB 08:13
PROVIDERS: ATTEND Internal Medicine Nephrology
DX: E10.22 Type 1 diabetes mellitus with diabetic chronic kidney disease (principal); N25.81 Secondary hyperparathyroidism of renal origin; Z94.0 Kidney transplant status; N18.9 Chronic kidney disease, unspecified

== ENCOUNTER → 2024-08-20 | Outpatient (CLI) | payer BC, MEDICARE ==
[2024-08-20 08:46] LABS: BASO % 0.5 % (0.0-1.0); EOS # 0.1 10*3/uL (0.0-0.4); EOS % 3.3 % (1.0-4.0); HEMATOCRIT 45.5 % (42.0-52.0); MEAN CELL VOLUME 88.7 fl (80.0-94.0); MEAN CORPUSCULAR HGB 30.4 pg (27.0-31.0); MEAN CORPUSCULAR HGB CONC 34.3 g/dl (33.0-37.0); MEAN PLATELET VOLUME 9.7 fl (9.6-12.3); MONO # 0.4 10*3/uL (0.1-1.0); MONO % 9.7 % (3.0-9.0); NEUT # 2.6 10*3/uL (2.3-7.9); NEUT % 61.1 % (47.0-73.0); PLATELET COUNT AUTOMATED 188 10*3/uL (130-400); RED BLOOD COUNT 5.13 10*6/uL (4.50-5.90); RED CELL DISTRI WIDTH 12.9 % (0-14.5); WHITE BLOOD COUNT 4.2 10*3/uL (4.8-10.8)
[2024-08-20 09:37] LABS: ALKALINE PHOSPHATASE 85 U/L (46-116); BUN 18 mg/dl (9-23); CHLORIDE 106 mmol/L (98-107); POTASSIUM 4.4 mmol/L (3.4-5.1); SGPT/ALT 25 U/L (5-49); TOTAL PROTEIN 6.9 gm/dL (6.0-8.0); URIC ACID 6.3 mg/dL (3.7-9.2)
[2024-08-20 09:40] LABS: VITAMIN D, 25-HYDROXY 28.2 ng/mL (30-100)
== END | disposition home or self-care (01) ==
LOC: LAB 08:25
PROVIDERS: ATTEND Internal Medicine Nephrology
DX: N25.81 Secondary hyperparathyroidism of renal origin (principal); N18.9 Chronic kidney disease, unspecified; D63.1 Anemia in chronic kidney disease; Z94.0 Kidney transplant status

== ENCOUNTER 2024-12-01 15:43 | Emergency (ER) | payer BC, MEDICARE ==
[~2024-12-01] VITALS: Ht 177.8 cm; Wt 99.8 kg
[2024-12-01] MEDS ORDERED: Lidocaine Hydrochloride 2% 5 ML SDV SC ONE (16:15)
[2024-12-01] MEDS ORDERED: CEPHALEXIN500 M1 PO (16:49)
[2024-12-01] MEDS ORDERED: CEPHALEXIN 500 MG CAP PO ONE (16:50)
[2024-12-01] MEDS ORDERED: Bacitracin Zinc 14 GM TUBE T ONE (16:50)
== END 2024-12-01 17:41 | disposition home or self-care (01) ==
LOC: ED 15:43
DX: S60.454A Superficial foreign body of right ring finger, initial encounter (principal); I10 Essential (primary) hypertension; E11.9 Type 2 diabetes mellitus without complications; Z79.899 Other long term (current) drug therapy; Z98.890 Other specified postprocedural states; W45.8XXA Other foreign body or object entering through skin, initial encounter; Y93.89 Activity, other specified; Y92.89 Other specified places as the place of occurrence of the external cause; Y99.8 Other external cause status